=== PATIENT | female | born 2000 | race Caucasian/White ===

== ENCOUNTER 2023-04-19 06:30 | Inpatient (IN) | payer OTHER ==
[2023-04-19] MEDS: ELECTROLYTE-148 SOLN 1,000 ML IV SCH (07:15)
[2023-04-19] MEDS: CITRIC ACID/SODIUM CITRATE 30 ML UNIT-DOSE CUP PO ONE (07:15)
[2023-04-19 07:49] VITALS: BMI 26.4
[2023-04-19] MEDS ORDERED: morphine SULFATE/PF 1 MG/2 ML (2cc Syringe - QUVA) ONE (08:19)
[2023-04-19] MEDS ORDERED: FENTANYL CITRATE/PF 50 MCG/ML VIAL ONE (08:20)
[2023-04-19] MEDS ORDERED: ePHEDrine SULFATE 50 MG/1 ML AMPULE ONE (08:37)
[2023-04-19] MEDS ORDERED: PHENYLEPHRINE HCL 10 MG/1 ML SINGLE DOSE VIAL ONE (09:18)
[2023-04-19] MEDS ORDERED: KETOROLAC TROMETHAMINE 30 MG/1 ML VIAL ONE (09:18)
[2023-04-19] MEDS ORDERED: ceFAZolin SODIUM 1 GM VIAL ONE (09:18)
[2023-04-19] MEDS ORDERED: ONDANSETRON 4 MG/2 ML VIAL ONE (09:18)
[2023-04-19] MEDS ORDERED: METHYLERGONOVINE MALEATE 0.2 MG/1 ML AMP IM PRN (09:21)
[2023-04-19] MEDS ORDERED: BENZOCAINE 28 GM HEMORRHOIDAL OINTMENT TP PRN (09:21)
[2023-04-19] MEDS ORDERED: WITCH HAZEL 50% (TUCKS) 40 PAD/JAR PAD TP PRN (09:21)
[2023-04-19] MEDS ORDERED: ACETAMINOPHEN INJECTION 100 ML IVPB ONE (09:24)
[2023-04-19] MEDS: OXYTOCIN 20 UNITS in 0.9% NS 20 UNIT/1,000 ML INFUS.BAG IV SCH (09:35)
[2023-04-19] MEDS: ACETAMINOPHEN 1000 MG/100 ML BAG IVPB ONE (09:40)
[2023-04-19] MEDS ORDERED: ONDANSETRON 4 MG/2 ML VIAL IVPUSH PRN ×2 (10:00)
[2023-04-19] MEDS: LACTATED RINGERS SOLUTION 1,000 ML IV SCH (14:41)
[2023-04-19] MEDS: FERROUS SO4 325 MG TABLET (FP) PO SCH (14:41)
[2023-04-19] MEDS: morphine SULFATE/PF 1 MG/2 ML (2cc Syringe - QUVA) SPIN ONE (14:41)
[2023-04-19] MEDS: PRENATAL VITAMINS W/ FOLIC ACID TABLET (FP) PO SCH (14:44)
[2023-04-19] MEDS: IBUPROFEN 800 MG/8 ML IJ IVPB PRN (15:53)
[2023-04-19] MEDS ORDERED: oxyCODONE HCL 5 MG TABLET PO PRN (21:21)
[2023-04-20 07:37] LABS: BASO % 0.3 % (0-2.0); EOS % 0.7 % (0-4.5); HEMATOCRIT 26.3 % (32.4-45.2); HEMOGLOBIN 9.4 GM/dL (10.7-15.3); LYMPH % 12.2 % (8-40); MCH 31.4 pg (25.7-33.7); MCHC 35.8 g/dl (32.0-36.0); MEAN CELL VOLUME 87.8 fl (80-96); MEAN PLT VOLUME 8.6 fl (7.5-11.1); MONO % 7.9 % (3.8-10.2); NEUT % 78.9 % (42.8-82.8); PLATELET COUNT 181 10^3/uL (134-434); RDW 14.1 % (11.6-15.6); WHITE BLOOD COUNT 10.2 K/mm3 (4.0-10.0)
[2023-04-20] MEDS: IBUPROFEN 600 MG TABLET (FP) PO PRN (09:14)
[2023-04-20] MEDS: ACETAMINOPHEN 325 MG TABLET (FP) PO PRN (10:36)
[2023-04-20] MEDS: SIMETHICONE 80 MG TAB.CHEW (FP) PO PRN (10:36)
[2023-04-20] MEDS ORDERED: BENZOCAINE/MENTH/CETYLPYRD CL 1 EACH LOZENGE MM PRN (11:21)
[2023-04-20] MEDS: DIPHTH,PERTUSS(ACELL),TET 0.5 ML DISP.SYRIN IM ONE (11:54)
[2023-04-20] MEDS: FLU VACCINE (FLULAVAL) PF 60 MCG/0.5 ML SYRINGE 2023-2024 IM ONE (11:55)
[2023-04-20] MEDS: guaiFENesin 200 MG/10 ML 10 ML UNIT-DOSE CUPS PO PRN (14:09)
[2023-04-20] MEDS: BISACODYL 10 MG SUPP.RECT RC PRN (20:42)
[2023-04-21 09:05] VITALS: BP 114/71; PULSE 87; RESP 18; TEMP 98.2
== END 2023-04-21 13:20 | disposition home or self-care (01) | DRG 540 ==
LOC: JLDR 06:30 → J3W 12:05
PROVIDERS: ADMIT Obstetrics & Gynecology; ATTEND Obstetrics & Gynecology
PROC: 10D00Z1 Extraction of Products of Conception, Low, Open Approach (ICD-10-PCS; principal; 2023-04-19)
PROC: 0UL70ZZ Occlusion of Bilateral Fallopian Tubes, Open Approach (ICD-10-PCS; 2023-04-19)
DX: O34.219 Maternal care for unspecified type scar from previous cesarean delivery (principal); Z3A.39 39 weeks gestation of pregnancy; Z37.0 Single live birth; Z30.2 Encounter for sterilization
CPT/HCPCS: 36415; 80053; 85025; 85610; 86780; 86850; 86900; 86901; 88302-TC; 88307-TC; J0131